=== PATIENT | male | born 1960 | race Two or more races ===

== ENCOUNTER 2023-06-10 09:08 | Emergency (ER) | payer BC, OTHER ==
[~2023-06-10] VITALS: Ht 175.3 cm; Wt 72.1 kg
[2023-06-10 09:21] VITALS: BP 127/80; PULSE 110; RESP 19; TEMP 98.1; O2SAT 99
[2023-06-10 10:18] LABS: FLU A ANTIGEN negative (NEGATIVE); FLU B ANTIGEN negative (NEGATIVE)
[2023-06-10] MEDS ORDERED: DEXT118S25 PO (12:18)
== END 2023-06-10 12:28 | disposition home or self-care (01) ==
LOC: MED 09:08
DX: J06.9 Acute upper respiratory infection, unspecified (principal); Z20.822 Contact with and (suspected) exposure to COVID-19; E03.9 Hypothyroidism, unspecified; Z79.899 Other long term (current) drug therapy
CPT/HCPCS: 71045; 99284